=== PATIENT | male | born 1930 | race Caucasian/White ===

== ENCOUNTER → 2017-09-11 | Outpatient (REF) ==
[2017-09-09 18:29] LABS: PSA-TOTAL 6.47 ng/mL (0-4)
[2017-09-09 18:39] LABS: THYROID STIMULATING HORMONE 4.44 uIU/mL (0.465-4.680)
== END ==
LOC: ZLAB.WCH 13:46
PROVIDERS: Internal Medicine
DX: Z01.89 Encounter for other specified special examinations (principal)
CPT/HCPCS: G0103

== ENCOUNTER 2021-06-18 12:34 | Inpatient (IN) | payer MEDICARE ==
[~2021-06-18] VITALS: Ht 177.8 cm; Wt 76.2 kg
[2021-06-18 15:21] VITALS: BP 139/63; PULSE 75
[2021-06-18] MEDS ORDERED: ZEBETA 5MG5 MG PO ×2 (16:21→16:22)
[2021-06-18] MEDS ORDERED: CRESTOR5 MG PO (16:22)
[2021-06-18] MEDS ORDERED: ASPIRIN E.C. 8181 MG PO (16:22)
[2021-06-18] MEDS ORDERED: NORVASC 10MG10 MG PO (16:23)
[2021-06-18] MEDS ORDERED: COZAAR 25MG25 MG/TAB PO (16:23)
[2021-06-18 17:16] LABS: HEMATOCRIT 39.8 % (42.0-52.0); HEMOGLOBIN 13.4 g/dl (13.5-18.0); MEAN CELL VOLUME 90 fl (80.0-100.0); MEAN CORPUSCULAR HEMOGLOBIN 30 pg (27-31); MEAN CORPUSCULAR HGB CONC 34 g/dl (33.0-37.0); MEAN PLATELET VOLUME 10.5 fl (7.4-10.4); PLATELET COUNT 248 K/mm3 (130-400); RED BLOOD COUNT 4.44 M/mm3 (4.20-5.60)
[2021-06-18 17:30] LABS: ALBUMIN 2.8 gm/dL (3.4-4.8); BILIRUBIN,TOTAL 0.5 mg/dL (0.2-1.2); C-REACTIVE PROTEIN 19.14 mg/dL (0.00-0.50); CALCIUM 9.2 mg/dL (8.4-10.2); CREATININE, serum 2.07 mg/dL (0.72-1.25); POTASSIUM 4.2 mmol/L (3.5-4.5); TOTAL PROTEIN 7.1 gm/dL (6.2-8.1)
[2021-06-18 17:48] LABS: LYMPHOCYTE 9 % (20.0-51.0); NEUTROPHILS 87 % (42.0-75.2); PLATELET ESTIMATE NORMAL (NORMAL)
--- NOTE | 2021-06-18 18:03 | NUR ---
Patient has done well since arriving to the floor. Patient arrived on 15L via non-rebreather and was placed on Airvo (40L @ 55%) and is tolerating it well. Patient is a high fall risk, bed alarm is on and call light is w/in reach.
[2021-06-18 20:32] VITALS: BP 148/55; PULSE 70; TEMP 99.1
--- NOTE | 2021-06-18 23:30 | NUR ---
PT IS PLEASANT AND COOPERATIVE. PT DENIES ANY PAIN, STATES HE IS FEELING ALRIGHT. DENIES N/V/D. PT STATES HE WANTS TO TRY TO GET SOME SLEEP. TOOK MEDICATION PRESCRIBED. NO OTHER NEEDS AT THIS TIME.
[2021-06-19 00:44] VITALS: BP 133/59; PULSE 58; TEMP 98.8
[2021-06-19 04:15] VITALS: BP 158/64; PULSE 65; TEMP 97.9
--- NOTE | 2021-06-19 06:22 | NUR ---
PT HAS INCREASED ON AIRVO SETTINGS OVERNIGHT, CURRENTLY ON 55 L 90% FIO2. PT SLEPT ALL NIGHT, IV FLUIDS RUNNING AT 50 ML/HR. CALL LIGHT IN REACH. ALL NEEDS MET.
[2021-06-19 07:57] LABS: HEMOGLOBIN 12.3 g/dl (13.5-18.0); MEAN CELL VOLUME 90 fl (80.0-100.0); MEAN CORPUSCULAR HEMOGLOBIN 30 pg (27-31); MEAN CORPUSCULAR HGB CONC 34 g/dl (33.0-37.0); MEAN PLATELET VOLUME 10.8 fl (7.4-10.4); PLATELET COUNT 258 K/mm3 (130-400); RED BLOOD COUNT 4.09 M/mm3 (4.20-5.60); REDCELL DISTRIBUTION WIDTH-CV 15.1 % (11.5-14.5)
[2021-06-19 07:58] LABS: HEMATOCRIT 36.6 % (42.0-52.0)
[2021-06-19 07:59] LABS: ALBUMIN 2.4 gm/dL (3.4-4.8); BILIRUBIN,TOTAL 0.4 mg/dL (0.2-1.2); CALCIUM 8.8 mg/dL (8.4-10.2); CREATININE, serum 1.92 mg/dL (0.72-1.25); POTASSIUM 4.4 mmol/L (3.5-4.5); TOTAL PROTEIN 6.3 gm/dL (6.2-8.1)
--- NOTE | 2021-06-19 08:00 | NUR ---
PATIENT IS A&O. PATIENT IS REQUIRING AIRVO AT 55L, 90% TO KEEP SATS AT IN THE LOW 90'S. A&P LUNG MIRANDA ARE DEMINISHED WITH FC IN BASES. NOTED OCCATIONAL NON-PRODUCTIVE COUGH. ALL OTHER VSS. PATIENT IS COVID POSITIVE AND ON DROPPLET CONTACT. DNR STATUS. HEAD TO TOE ASSESSMENT COMPLETE. AM MEDS GIVEN. PATIENT DENIES N/V BUT REPORTS DECREASED APPETITE. IV FLUIDS INFUSING VIA PUMP INTO LEFT AC IV. NO OTHER NEEDS AT THIS TIME. CALL LIGHT IN REACH.
[2021-06-19 08:28] VITALS: BP 144/56; PULSE 67; TEMP 98.3
[2021-06-19 08:33] LABS: TROPONIN-I 0.048 ng/mL (0.00-0.033)
[2021-06-19 09:19] LABS: BAND 8 % (0-10); LYMPHOCYTE 11 % (20.0-51.0); NEUTROPHILS 79 % (42.0-75.2); PLATELET ESTIMATE NORMAL (NORMAL)
[2021-06-19 11:19] VITALS: BP 124/40; PULSE 54; TEMP 98.7
--- NOTE | 2021-06-19 13:56 | NUR ---
The patient is COVID positive. SW contacted the patient's , Wayne (ph#[phone]), to discuss discharge plan. The patient and Wayne's daughter, Nya, answered the phone. Wayne was also on the call. [place] the [place] outside of [place] with his . Nya reports that the patient is independent with ADLs and has a cane and walker. The patient's PCP is Dr. Tanner Salinas and he receives his medications from [email or web address]. Nya reports that the patient does not have a DPOA-HC. The patient's next of kin is his . He then has three children: Nya (ph#[phone]), Tian (ph#[phone]), and Barber. Nya reports that the plan would be for the patient to return back home with his upon discharge. The patient is currently on 55 liters of oxygen. SW to continue to follow. *Discharge plan: home with *
--- NOTE | 2021-06-19 17:30 | NUR ---
REPORTED OFF TO ABRAN PRADHAN
[2021-06-19 17:41] VITALS: BP 123/55; PULSE 58; TEMP 98.8
--- NOTE | 2021-06-19 18:17 | NUR ---
Report received from Concepción. Patient resting in bed with eyes closed. No apparent distress noted. Call light in reach.
[2021-06-19 20:35] VITALS: BP 117/46; PULSE 54; TEMP 97.9
--- NOTE | 2021-06-19 23:40 | NUR ---
THIS RN CAME INTO ROOM DUE TO IV PUMPS BEEPING. THIS RN FOUND REMDESIVIR AND IV FLUIDS NOT INFUSING DUE TO DISTAL OCCULSION. THIS RN ATTEMPTED TO FIX IV SITE, ATTEMPTED FLUSH. IV SITE NOT ABLE TO FLUSH, THIS RN STOPPED IV FLUIDS AND GOT NEW IV SITE IN RIGHT AC. FLUIDS RUNNING TO RIGHT AC. PT HAD MOVED TO TO BIPAP AT SHIFT CHANGE, PT AT IPAP 14 AND EPAP AT 10. O2 AT 100%. PT SATTING AT 96% ON THESE SETTINGS. MEDICATIONS GIVEN, NO COMPLAINTS OF PAIN. DAUGHTER CALLED FOR UPDATE, TOLD DAUGHTER MOVED TO BIPAP, AND DUE TO PATIENT CODE STATUS THAT IS THE HIGHEST WE CAN GO FOR HIS OXYGEN. PT DAUGHTER STATED SHE THOUGHT HE WAS OK WITH INTUBATION, THIS RN INFORMED OF DOCUMENTS STATING THAT HE IS NOT. THIS RN TOLD DAUGHTER WILL CALL HOSPITILIST, CARLA TRAYLOR, TO CLARIFY AND MAKE SURE OF DECISION AND RIGHT DOCUMENTATION. THIS RN GAVE PA DAUGHTER PHONE NUMBER AND LET CONVERSATION BE BETWEEN DOCTOR AND DAUGHTER. NO OTHER NEEDS AT THIS TIME.
[2021-06-20] VITALS (8 sets, daily range): BP systolic 116–134; BP diastolic 46–82; PULSE 43–95; TEMP 7.9
--- NOTE | 2021-06-20 06:30 | NUR ---
PT HAD AN UNEVENTFUL NIGHT. PT REMAINED ON BIPAP ALL NIGHT WITH NO PROBLEMS. PT SATTING IN HIGH 90'S ON BIPAP. PT SLEPT MOST OF NIGHT, DENIES PAIN. IV FLUID AT 50 ML/HR INFUSING. CALL LIGHT IN REACH, ALL NEEDS MET.
--- NOTE | 2021-06-20 07:00 | NUR ---
Report received from ABRAN Castillo. PT in bed resting, will continue to monitor
[2021-06-20 08:05] LABS: HEMATOCRIT 37.3 % (42.0-52.0); HEMOGLOBIN 12.1 g/dl (13.5-18.0); MEAN CELL VOLUME 90 fl (80.0-100.0); MEAN CORPUSCULAR HEMOGLOBIN 29 pg (27-31); MEAN CORPUSCULAR HGB CONC 32 g/dl (33.0-37.0); MEAN PLATELET VOLUME 10.9 fl (7.4-10.4); PLATELET COUNT 298 K/mm3 (130-400); RED BLOOD COUNT 4.13 M/mm3 (4.20-5.60); REDCELL DISTRIBUTION WIDTH-CV 15.1 % (11.5-14.5)
[2021-06-20 08:21] LABS: C-REACTIVE PROTEIN 11.69 mg/dL (0.00-0.50); CALCIUM 8.7 mg/dL (8.4-10.2); CREATININE, serum 2.04 mg/dL (0.72-1.25); POTASSIUM 4.4 mmol/L (3.5-4.5)
--- NOTE | 2021-06-20 08:30 | NUR ---
Assessment charted. Pt satting 95% on Bipap and wanted to drink some water and take am meds, switched over to AIRVO at 60L/90% and pt able to tolerate this for short time with sats remaining above 90% but needed to go back on bipap at 100% fiO2 within 10 minutes. Pt resting in bed, update provided to daughter over phone. IVF to RAC. Denies pain, alert and oriented, will continue to monitor.
[2021-06-20 09:29] LABS: BAND 3 % (0-10); LYMPHOCYTE 16 % (20.0-51.0); METAMYELOCYTE 1 % (0-0); NEUTROPHILS 77 % (42.0-75.2)
[2021-06-20 09:30] LABS: BURR CELLS 1+; PLATELET ESTIMATE NORMAL (NORMAL)
--- NOTE | 2021-06-20 11:03 | NUR ---
The patient's oxygen needs increased to 60 liters and he was placed on a bipap. SW to continue to monitor.
--- NOTE | 2021-06-20 17:57 | NUR ---
Pt unable to tolerate being off bipab for much time today, even with AIRVO maxed out today. Resting quietly in bed, did eat a lot of his lunch and just wanted an ensure for supper. Updated daughter over shift, will continue to monitor.
--- NOTE | 2021-06-20 23:53 | NUR ---
PT IS SLEEPING WITH BIPAP ON AT 85%. TOLERATING WELL. PT DENIES PAIN, DISCOMFORT OR ANY INCREASE SOB. PT TOOK ALL MEDICATIONS PRESCRIBED. ASSESSMENT COMPLETED. ALL NEEDS MET
[2021-06-21] VITALS (8 sets, daily range): BP systolic 12–145; BP diastolic 45–56; PULSE 46–77; TEMP 97.5–977
--- NOTE | 2021-06-21 05:52 | NUR ---
PT HAD AN UNEVENTFUL NIGHT. PT SLEPT MOST OF NIGHT, PT ON BIPAP. /10 ON 85% ON BIPAP. PT TOLERATING WELL. PT STATED MOUTH WAS DRY WHEN THIS RN CAME TO DRAW BLOOD FOR MORNING LABS. THIS RN ASSISTED PATIENT MULTIPLE TIMES THROUGHOUT NIGHT WITH DRINKING WATER AND TAKING OFF BIPAP MOMENTARILY FOR A DRINK OF WATER. THIS RN TOLD PATIENT TO USE CALL LIGHT IF THIRSTY IN ORDER TO HELP HIM WITH BIPAP AND DRINKING WATER. PT STATED ALSO HAD SOME DISCOMFORT WITH BIPAP DUE TO "ODDLY SHAPED NOSE". CALL LIGHT IN REACH, ORIENTATED PATIENT TO CALL LIGHT LOCATION, ALL NEEDS MET.
[2021-06-21 06:03] LABS: ALBUMIN 2.4 gm/dL (3.4-4.8); BILIRUBIN,TOTAL 0.3 mg/dL (0.2-1.2); C-REACTIVE PROTEIN 7.16 mg/dL (0.00-0.50); CALCIUM 8.8 mg/dL (8.4-10.2); CREATININE, serum 2.05 mg/dL (0.72-1.25); POTASSIUM 4.4 mmol/L (3.5-4.5); TOTAL PROTEIN 6.1 gm/dL (6.2-8.1)
[2021-06-21 08:34] LABS: BASO % 0.1 % (0.0-2.0); GRAN # 8.7 K/mm3 (1.4-6.5); GRAN % 84.1 % (42.2-75.2); HEMOGLOBIN 11.8 g/dl (13.5-18.0); LYMPH % 9.5 % (20.0-51.0); MEAN CELL VOLUME 90 fl (80.0-100.0); MEAN CORPUSCULAR HEMOGLOBIN 30 pg (27-31); MEAN CORPUSCULAR HGB CONC 33 g/dl (33.0-37.0); MEAN PLATELET VOLUME 11.2 fl (7.4-10.4); MONO # 0.5 K/mm3 (0.1-0.6); MONO % 5.1 % (1.7-9.3); PLATELET COUNT 316 K/mm3 (130-400); RED BLOOD COUNT 3.97 M/mm3 (4.20-5.60); REDCELL DISTRIBUTION WIDTH-CV 14.9 % (11.5-14.5)
[2021-06-21 08:36] LABS: HEMATOCRIT 35.6 % (42.0-52.0)
--- NOTE | 2021-06-21 23:35 | NUR ---
PT PLACED ON BIPAP AT 1955 PT WAS SATURATING 83 PERCENT ON AIRVO 60L FI02 94 PERCENT. BIPAP SETTINGS 16/10 FIO2 100 02 SATURATION 95 PERCENT. THIS NURSE WILL CONTINUE TO MONITOR.
[2021-06-22 03:32] VITALS: BP 127/50; PULSE 61; TEMP 97.8
[2021-06-22 07:37] VITALS: BP 146/56; TEMP 97.8
[2021-06-22 07:56] LABS: HEMATOCRIT 37.1 % (42.0-52.0); HEMOGLOBIN 12.2 g/dl (13.5-18.0); MEAN CELL VOLUME 89 fl (80.0-100.0); MEAN CORPUSCULAR HEMOGLOBIN 29 pg (27-31); MEAN CORPUSCULAR HGB CONC 33 g/dl (33.0-37.0); MEAN PLATELET VOLUME 11.2 fl (7.4-10.4); PLATELET COUNT 302 K/mm3 (130-400); RED BLOOD COUNT 4.16 M/mm3 (4.20-5.60); REDCELL DISTRIBUTION WIDTH-CV 14.6 % (11.5-14.5)
[2021-06-22 08:16] LABS: C-REACTIVE PROTEIN 4.8 mg/dL (0.00-0.50); CREATININE, serum 2.25 mg/dL (0.72-1.25)
[2021-06-22 09:16] LABS: BAND 4 % (0-10); LYMPHOCYTE 4 % (20.0-51.0); NEUTROPHILS 88 % (42.0-75.2); PLATELET ESTIMATE NORMAL (NORMAL)
--- NOTE | 2021-06-22 10:05 | NUR ---
The patient remains bipap dependent. SW to continue to monitor.
[2021-06-22 11:42] VITALS: BP 141/55; PULSE 52; TEMP 97.8
--- NOTE | 2021-06-22 13:46 | NUR ---
SWIRCHED TO CPAP [address] PRITCH[address]
[2021-06-22 15:34] VITALS: BP 132/59; PULSE 54; TEMP 97.6
--- NOTE | 2021-06-22 19:10 | NUR ---
PT NOTED TO HAVE SUBCUTANEOUS EMPHYSEMA,DR PRITCHARD CALLED AND NOTIFY ORDERS REVEIVED FOR CHEST XRAY AND TO HAVE RT TO PLACE PT ON IARVO CHANGE BIPAP SETTING.SHRAVAN WITH RT CALLED ABD NOTIFY
[2021-06-22 19:39] VITALS: BP 118/45; PULSE 55; TEMP 98
--- NOTE | 2021-06-22 21:51 | NUR ---
SPOKE TO ABI OSULLIVAN, ABOUT MOVING PATIENT TO AIRVO AFTER NOTICEABLE CHANGES TO PATIENTS SUBCU EMPHYSEMA. PATIENT IS CURRENTLY STILL COMFORTABLE ON AIRVO AT 60L, 94% WITH SP02 AT 92%. I SPOKE TO THE PCT AND RN AND WE WILL WORK TOGETHER TO CLOSELY MONITOR SATURATIONS. AFTER SPEAKING WITH OUR NOC HOSP CARLA TRAYLOR, WE STILL ARE AT A DNR STATUS. IF PATIENT DESATURATES, THEN WE WILL PLACE PATIENT ON BIPAP AND PATIENT IS AWARE OF THAT.
[2021-06-22 23:15] VITALS: BP 140/59; PULSE 57; TEMP 97.9
[2021-06-23 04:00] VITALS: BP 128/52; PULSE 52; TEMP 97.6
--- NOTE | 2021-06-23 04:13 | NUR ---
PT SATURATING 89-90 PERCENT ON AIRVO 60L 93 PERCENT. PT VERBALIZES UNDERSTANDING ON PURPOSE OF BIPAP WEAN AND HOLD.
--- NOTE | 2021-06-23 05:07 | NUR ---
PT SLEPT MAJORITY OF THIS SHIFT. PT CONTINUES WITH AIRVO AT 60L 93 FIO2 WITH O2 SATURATIONS RANGING FROM 88-92. PT CONTINUES TO APPEAR FRAIL, PALE AND CYANOTIC. BREATHING IS NOT LABOROUS BEGINNING OF SHIFT, PT WISHES COMFORT OVER INVASIVE INTERVENTIONS. COMFORT MEASURES PROVIDED THIS SHIFT. PT EXPRESSES NO ADDITONAL NEEDS. CALL LIGHT WITHIN REACH. PULSE OXIMETRY CONTINOUSLY MONITORING.
[2021-06-23 05:37] LABS: BASO % 0.2 % (0.0-2.0); GRAN % 87.3 % (42.2-75.2); LYMPH # 0.9 K/mm3 (1.2-3.4); LYMPH % 7.4 % (20.0-51.0); MEAN CELL VOLUME 91 fl (80.0-100.0); MEAN CORPUSCULAR HEMOGLOBIN 30 pg (27-31); MEAN CORPUSCULAR HGB CONC 33 g/dl (33.0-37.0); MEAN PLATELET VOLUME 10.8 fl (7.4-10.4); MONO # 0.5 K/mm3 (0.1-0.6); MONO % 3.8 % (1.7-9.3); PLATELET COUNT 282 K/mm3 (130-400); RED BLOOD COUNT 4.04 M/mm3 (4.20-5.60); REDCELL DISTRIBUTION WIDTH-CV 14.7 % (11.5-14.5)
[2021-06-23 05:49] LABS: HEMATOCRIT 36.7 % (42.0-52.0)
[2021-06-23 06:07] LABS: C-REACTIVE PROTEIN 3.27 mg/dL (0.00-0.50); CALCIUM 8.6 mg/dL (8.4-10.2); CREATININE, serum 2.08 mg/dL (0.72-1.25); POTASSIUM 4.8 mmol/L (3.5-4.5)
[2021-06-23 07:55] VITALS: BP 126/51; PULSE 58; TEMP 98.5
[2021-06-23 11:41] VITALS: BP 112/48; PULSE 60; TEMP 97.8
[2021-06-23 15:26] VITALS: BP 122/49; PULSE 56; TEMP 98.7
--- NOTE | 2021-06-23 19:00 | NUR ---
PT TOLARATING AIRVO ALL DAY PT WITH NO DISTRESS.
[2021-06-23 19:53] VITALS: BP 118/75; PULSE 67; TEMP 98.1
[2021-06-23 23:26] VITALS: BP 120/71; PULSE 84; TEMP 97.9
--- NOTE | 2021-06-24 01:32 | NUR ---
Patient is sitting in bed, alert and oriented x 4, continues in airvo 60L 90%fio2. His oxygen drops to 70% sat while moving. Assessment completed, hygiene provided, linens changed, no further needs at this time. Call light within reach.
[2021-06-24 03:44] VITALS: BP 120/71; PULSE 77; TEMP 98.4
--- NOTE | 2021-06-24 06:54 | NUR ---
Pt had a calm night. His O2 drops with exertion to 70's but recovers at rest. He has been with AIRVO AT 60L 92%. Shift report given to day RN.
[2021-06-24 08:07] LABS: HEMOGLOBIN 11.7 g/dl (13.5-18.0); MEAN CELL VOLUME 90 fl (80.0-100.0); MEAN CORPUSCULAR HEMOGLOBIN 29 pg (27-31); MEAN CORPUSCULAR HGB CONC 33 g/dl (33.0-37.0); MEAN PLATELET VOLUME 11.5 fl (7.4-10.4); PLATELET COUNT 298 K/mm3 (130-400); RED BLOOD COUNT 3.98 M/mm3 (4.20-5.60); REDCELL DISTRIBUTION WIDTH-CV 14.6 % (11.5-14.5)
[2021-06-24 08:29] LABS: HEMATOCRIT 35.9 % (42.0-52.0)
[2021-06-24 08:30] VITALS: BP 136/54; PULSE 72; TEMP 98.5
[2021-06-24 08:36] LABS: CALCIUM 8.7 mg/dL (8.4-10.2); CREATININE, serum 2.26 mg/dL (0.72-1.25); POTASSIUM 4.8 mmol/L (3.5-4.5)
--- NOTE | 2021-06-24 10:00 | NUR ---
Pt doing well this am. Pt has no complaints of pain. Pt reported that he did get up twice last night to use commode and did have bowel movement both times. Pt using urinal for voiding. Pt has had and tolerated breakfast with no complaints. Pt continues to have airvo on. Call light within reach, will continue to monitor
[2021-06-24 10:58] LABS: HYPOCHROMIA 1+; LYMPHOCYTE 2 % (20.0-51.0); NEUTROPHILS 92 % (42.0-75.2); PLATELET ESTIMATE NORMAL (NORMAL)
[2021-06-24 11:00] VITALS: BP 117/64; PULSE 67; TEMP 99
[2021-06-24 15:50] VITALS: BP 117/48; PULSE 56; TEMP 98.5
[2021-06-24 20:25] VITALS: BP 126/50; PULSE 61; TEMP 98.3
--- NOTE | 2021-06-24 22:00 | NUR ---
Patient is resting in bed, alert and oriented x 4, looks tired. denies pain, nasuea or vomiting. Indicates he feels the same. Continues dropping his O2 sat while standing or moving to comode. Continues with airvo 60L 92%FiO2. Assessment completed, medications provided. No further needs at this time, call light within reach.
[2021-06-24 23:32] VITALS: BP 114/50; PULSE 64; TEMP 98.4
[2021-06-25 04:02] VITALS: BP 132/55; PULSE 60; TEMP 98.3
--- NOTE | 2021-06-25 07:13 | NUR ---
Pt has been under the same conditions, no changes. He had a calm night. Report given to day RN.
[2021-06-25 08:00] VITALS: BP 134/80; PULSE 60; TEMP 98.7
--- NOTE | 2021-06-25 10:30 | NUR ---
PT RESTING IN BED. MORNING MEDICATIONS GIVEN. SHIFT ASSESSMENT COMPLETED. PT CURRENTLY ON AIRVO 60L/95%. PICC LINE FLUSHES AND HAS GOOD BLOOD RETURN. DENIES ANY PAIN OR NEEDS. CONTINUING TO MONITOR.
--- NOTE | 2021-06-25 10:38 | NUR ---
The patient remains on 60 liters oxygen. The hospitalist notified SW that he would like a referral to [facility]. BEVERLY contacted and faxed a referral to [facility]. Awaiting screen.
[2021-06-25 12:00] VITALS: BP 130/51; PULSE 58; TEMP 98
--- NOTE | 2021-06-25 12:03 | NUR ---
Follow up visit from the frame expander. Chaplain millanyed with patient. No other needs right now.
--- NOTE | 2021-06-25 14:42 | NUR ---
Sly, at [facility], reports that the patient is too unstable at this time and cannot present his case to [facility] yet or else they will deny. Sly plans to follow along with the patient.
[2021-06-25 16:00] VITALS: BP 116/61; PULSE 73; TEMP 98
--- NOTE | 2021-06-25 17:15 | NUR ---
MOVED PT TO RM 303WITH NRB. PT 64% WHEN PLACED BACK ON AIRVO. PLACED PT ON CPAP 12 AT 100% FOR [address]%. PL[address] BACK ON AIRVO SPO2 91% RN NOTIFIED
[2021-06-25 20:00] VITALS: BP 114/54; PULSE 66; TEMP 97.7
--- NOTE | 2021-06-25 21:53 | NUR ---
PT IS LAYING UPRIGHT IN BED, AIRVO 60 L, 95%. PT STATES "FEELS GOOD CAN BE AT THIS TIME" DENIES PAIN, ASSESSMENT COMPLETED. MEDICATIN GIVEN. NO OTHER NEEDS AT THIS TIME.
[2021-06-26] VITALS (7 sets, daily range): BP systolic 116–159; BP diastolic 48–75; PULSE 63–80; TEMP 97.4–98.1
--- NOTE | 2021-06-26 06:13 | NUR ---
Pt had an ok night. Pt slept through night on CPAP settings, pt denies pain, took all medications as ordered. Pt had times where O2 sats dropped, this RN readjusted CPAP mask and improved saturation settings. Pt seems to be developing sore on bridge of nose from Bipap/CPAP mask. Will pass information to day shift/RT to come with solutions. Call light in reach, all needs met.
[2021-06-26 07:02] LABS: HEMOGLOBIN 12.4 g/dl (13.5-18.0); MEAN CELL VOLUME 91 fl (80.0-100.0); MEAN CORPUSCULAR HEMOGLOBIN 30 pg (27-31); MEAN CORPUSCULAR HGB CONC 33 g/dl (33.0-37.0); MEAN PLATELET VOLUME 11.7 fl (7.4-10.4); PLATELET COUNT 273 K/mm3 (130-400); RED BLOOD COUNT 4.18 M/mm3 (4.20-5.60); REDCELL DISTRIBUTION WIDTH-CV 14.4 % (11.5-14.5)
[2021-06-26 07:32] LABS: CALCIUM 8.7 mg/dL (8.4-10.2); CREATININE, serum 1.99 mg/dL (0.72-1.25); POTASSIUM 4.8 mmol/L (3.5-4.5)
[2021-06-26 08:14] LABS: BAND 5 % (0-10); LYMPHOCYTE 6 % (20.0-51.0); METAMYELOCYTE 3 % (0-0); NEUTROPHILS 84 % (42.0-75.2); PLATELET ESTIMATE NORMAL (NORMAL)
--- NOTE | 2021-06-26 09:31 | NUR ---
MORNING MEDICATIONS GIVEN. SHIFT ASSESSMENT COMPLETED. PT TAKEN OFF OF CPAP AND PLACED ON AIRVO 60L/95%. DENIES ANY PAIN AT THIS TIME. PICC LINE FLUSHES AND HAS GOOD BLOOD RETURN. WILL CONTINUE TO MONITOR.
--- NOTE | 2021-06-26 15:06 | NUR ---
The patient has had little overall change. SW faxed updates to Sly at [facility].
--- NOTE | 2021-06-26 22:14 | NUR ---
PT IS ON AIRVO 60 L 95%. PT STATES READINESS TO LEAVE AND FEELING GOOD HE CAN BE. ASSESSMENT COMPLETED, PT DENIES PAIN. PT TOOK ALL MEDICATIONS PRESCRIBED.
[2021-06-27 00:05] VITALS: BP 125/51; PULSE 59; TEMP 98.2
[2021-06-27 04:45] VITALS: BP 155/63; PULSE 64; TEMP 98.1
--- NOTE | 2021-06-27 05:57 | NUR ---
Pt had an uneventful night. Pt remained on Airvo 60L 95% until placed on CPAP at 12 cm. Pt denies pain, took all medications, drank water and urinated into urinal. Call light in reach, will continue to monitor.
[2021-06-27 07:56] VITALS: BP 128/47; PULSE 65; TEMP 98
[2021-06-27 12:00] VITALS: BP 125/56; PULSE 70; TEMP 98
--- NOTE | 2021-06-27 14:28 | NUR ---
BEVERLY faxed updates to Sly at [facility].
[2021-06-27 16:00] VITALS: BP 128/53; PULSE 63; TEMP 97.5
[2021-06-27 21:31] VITALS: BP 125/54; PULSE 65; TEMP 97.7
[2021-06-28 01:18] VITALS: BP 138/59; PULSE 66; TEMP 97.9
[2021-06-28 05:44] VITALS: BP 135/66; PULSE 73; TEMP 98.3
--- NOTE | 2021-06-28 06:14 | NUR ---
AT ABOUT 0550 PT ASSISTED TO BED SIDE COMMODE AND DURING BM PT RELEASED A SUBSTANTIAL AMOUNT OF BLOOD ALONG WITH BM, VSS, TACHYPNEIC. HOSPITALIST INFORMED, LOVENOX/ASPIRIN ON HOLD. NURSE WILL CONTINUE TO MONITOR.
--- NOTE | 2021-06-28 06:43 | NUR ---
PT REMAINS ON 60L 91 PERCENT FI02 WITH SATURATIONS RANGING FROM 90-92 AND BIPAP WITH 02 SATURATIONS AT 94 PERCENT. CALL LIGHT WITHIN REACH.
[2021-06-28 07:40] VITALS: BP 115/52; PULSE 84; TEMP 97.5
--- NOTE | 2021-06-28 09:59 | NUR ---
MORNING MEDICATIONS GIVEN. SHIFT ASSESSMENT COMPLETED. PICC LINE FLUSHES AND HAS BLOOD RETURN. CURRENTLY ON AIRVO 60L/95%, O2 SATURATIONS AROUND 88-90%. PT HAS HAD MULTIPLE SATURATED LINENS DUE TO RECTAL BLEEDING, AND COPIOUS AMOUNTS OF BLOOD IN STOOLS. PROVIDER NOTIFIED, INSTRUCTED TO CONSULT GI AND CONTINUE TO MONITOR. PT DENIES A HISTORY OF RECTAL BLEEDING/ISSUES. DENIES ANY ABDOMINAL OR RECTAL PAIN. BLOOD IN BRIGHT RED IN COLOR.
[2021-06-28 10:04] LABS: BASO % 0.1 % (0.0-2.0); GRAN # 14.2 K/mm3 (1.4-6.5); GRAN % 85.4 % (42.2-75.2); HEMOGLOBIN 11.8 g/dl (13.5-18.0); LYMPH # 1.4 K/mm3 (1.2-3.4); LYMPH % 8.1 % (20.0-51.0); MEAN CELL VOLUME 92 fl (80.0-100.0); MEAN CORPUSCULAR HEMOGLOBIN 30 pg (27-31); MEAN CORPUSCULAR HGB CONC 32 g/dl (33.0-37.0); MEAN PLATELET VOLUME 12.1 fl (7.4-10.4); MONO # 0.9 K/mm3 (0.1-0.6); MONO % 5.1 % (1.7-9.3); PLATELET COUNT 257 K/mm3 (130-400); RED BLOOD COUNT 3.95 M/mm3 (4.20-5.60); REDCELL DISTRIBUTION WIDTH-CV 14.6 % (11.5-14.5)
[2021-06-28 10:05] LABS: HEMATOCRIT 36.5 % (42.0-52.0)
[2021-06-28 10:23] LABS: ALBUMIN 2.4 gm/dL (3.4-4.8); BILIRUBIN,TOTAL 0.7 mg/dL (0.2-1.2); CALCIUM 8.5 mg/dL (8.4-10.2); CREATININE, serum 2.26 mg/dL (0.72-1.25); MAGNESIUM 2.5 mg/dL (1.6-2.6); POTASSIUM 5.3 mmol/L (3.5-4.5); TOTAL PROTEIN 5.4 gm/dL (6.2-8.1)
--- NOTE | 2021-06-28 10:42 | NUR ---
BLOOD BANK UNABLE TO SUPPLY A UNIT OF BLOOD FOR PT DUE TO CRITICAL SUPPLY. THEY REPORT THEY ARE UNABLE TO TRANSFUSE UNTIL HGB IS AT 6.5 OR LESS. WILL TYPE AND SCREEN AND CONTINUE TO TREND LAB VALUES.
[2021-06-28 11:55] VITALS: BP 123/98; PULSE 76; TEMP 97.4
[2021-06-28 16:20] VITALS: BP 103/53; PULSE 91; TEMP 97.5
[2021-06-28 18:31] LABS: HEMOGLOBIN 10.1 g/dl (13.5-18.0)
[2021-06-28 18:32] LABS: HEMATOCRIT 30.3 % (42.0-52.0)
[2021-06-28 20:17] LABS: HEMOGLOBIN 10.2 g/dl (13.5-18.0)
[2021-06-28 20:20] LABS: HEMATOCRIT 30.4 % (42.0-52.0)
[2021-06-28 20:24] VITALS: BP 96/51; PULSE 84; TEMP 97.8
--- NOTE | 2021-06-28 23:34 | NUR ---
PT IS LAYING IN BED, SITTING AT ALMOST [address], 60 L 95%. PT IS TIRED, GIVING SHORT ANSWERS. PT NEEDED ADJUSTED, PT BECAME DYSPNEIC UPON REPOSITIONING, OXYGEN SATURATIONS DOWN TO 84%. RT CALLED, STATED GIVE HIM TIME TO RECOVER, HE TAKES LONGER TO RECOVER. MEDICATIONS GIVEN, H&H BLOODWORK DRAWN, PT DENIES PAIN. PT MADE COMFORTABLE, CALL LIGHT IN REACH. NS RUNNING AT 75 ML/HR. WILL CONTINUE TO MONITOR.
[2021-06-29] VITALS (7 sets, daily range): BP systolic 103–127; BP diastolic 49–60; PULSE 79–87; TEMP 97.3–97.8
--- NOTE | 2021-06-29 05:48 | NUR ---
PT HAD AN UNEVENTFUL NIGHT. PT SLEPT MOST OF NIGHT, PT DENIES PAIN, CALL LIGHT IN REACH. NO SIGNS OF FURTHER BLEEDING. LAST H&H WAS STABLE AT 10.2. NS FLUIDS RUNNING AT 75 ML/HR.
[2021-06-29 06:23] LABS: CALCIUM 8.1 mg/dL (8.4-10.2); CREATININE, serum 2.66 mg/dL (0.72-1.25); POTASSIUM 5.5 mmol/L (3.5-4.5)
[2021-06-29 07:13] LABS: BASO % 0.2 % (0.0-2.0); GRAN # 17.2 K/mm3 (1.4-6.5); GRAN % 88.8 % (42.2-75.2); HEMOGLOBIN 10.1 g/dl (13.5-18.0); LYMPH # 0.9 K/mm3 (1.2-3.4); LYMPH % 4.7 % (20.0-51.0); MEAN CELL VOLUME 89 fl (80.0-100.0); MEAN CORPUSCULAR HEMOGLOBIN 30 pg (27-31); MEAN CORPUSCULAR HGB CONC 34 g/dl (33.0-37.0); MEAN PLATELET VOLUME 12.1 fl (7.4-10.4); MONO % 5.3 % (1.7-9.3); PLATELET COUNT 199 K/mm3 (130-400); RED BLOOD COUNT 3.37 M/mm3 (4.20-5.60); REDCELL DISTRIBUTION WIDTH-CV 14.8 % (11.5-14.5)
[2021-06-29 07:15] LABS: HEMATOCRIT 29.9 % (42.0-52.0)
--- NOTE | 2021-06-29 09:56 | NUR ---
PT RESTING IN BED. MORNING MEDICATIONS GIVEN. SHIFT ASSESSMENT COMPLETED. PT VERY WEAK BUT DENIES ANY PAIN. WILL ATTEMPT TO BLADDER SCAN FOR POSSIBLE MUNSON PLACEMENT. PICC LINE FLUSHES AND HAS BLOOD RETURN. CONTINUING TO MONITOR.
--- NOTE | 2021-06-29 14:32 | NUR ---
The patient remains high flow oxygen during the day at 60 liters and is on the bipap at night. BEVERLY faxed updates to Sly at [facility].
[2021-06-29 15:32] LABS: COLLECTION METHOD CATHETER
[2021-06-29 15:38] LABS: MUCOUS Present (NOT PRESENT); PH 5 (5-8); SQUAMOUS EPITHELIAL 0-2 /hpf (0-10); URINE APPEARANCE Hazy (CLEAR/HAZY); URINE BACTERIA None Seen /hpf (NONE SEEN); URINE BILIRUBIN Negative (NEGATIVE); URINE BLOOD 2+ (NEGATIVE); URINE COLOR Yellow (YELLOW); URINE GLUCOSE Negative (NEGATIVE); URINE KETONE Negative (NEGATIVE); URINE LEUKOCYTE ESTERASE Negative (NEGATIVE); URINE NITRATE Negative (NEGATIVE); URINE PROTEIN(semi-quant) Negative (NEGATIVE); URINE RBC >50 /hpf (0-2); URINE UROBILINOGEN Negative (NEGATIVE)
[2021-06-29 17:02] LABS: ALBUMIN 2.4 gm/dL (3.4-4.8); PHOSPHOROUS 5.9 mg/dL (2.3-4.7)
[2021-06-29 18:19] LABS: HEMATOCRIT 28.6 % (42.0-52.0); HEMOGLOBIN 9.4 g/dl (13.5-18.0)
--- NOTE | 2021-06-29 21:31 | NUR ---
Patient sitting up in bed with eyes closed upon enter the room. Patient awakens easily with verbal stimulation. Patient A/Ox3. Patient appears very weak and tired. Soft spoken voice noted. Patient currently on Airvo 60L/95%. Breathing labored. Patient denies any pain or discomfort. All scheduled meds given per AUG. Call light in reach. Will continue to monitor.
[2021-06-30 03:59] VITALS: BP 125/62; PULSE 84; TEMP 97.6
[2021-06-30 07:39] LABS: MEAN CELL VOLUME 90 fl (80.0-100.0); MEAN CORPUSCULAR HGB CONC 33 g/dl (33.0-37.0); MEAN PLATELET VOLUME 12.3 fl (7.4-10.4); PLATELET COUNT 152 K/mm3 (130-400); RED BLOOD COUNT 3.19 M/mm3 (4.20-5.60); REDCELL DISTRIBUTION WIDTH-CV 14.8 % (11.5-14.5)
[2021-06-30 07:41] LABS: HEMATOCRIT 28.8 % (42.0-52.0); HEMOGLOBIN 9.5 g/dl (13.5-18.0); MEAN CORPUSCULAR HEMOGLOBIN 30 pg (27-31)
[2021-06-30 07:51] LABS: CALCIUM 7.9 mg/dL (8.4-10.2); CREATININE, serum 2.6 mg/dL (0.72-1.25); POTASSIUM 4.8 mmol/L (3.5-4.5)
[2021-06-30 08:15] VITALS: BP 149/64; PULSE 91; TEMP 96.5
--- NOTE | 2021-06-30 09:15 | NUR ---
PT PLEASANT, AOX4, PT NECK AND UPPER CHEST EDEMETOUS, CREPITUS PALPATED AROUND NECK, FINE CRACKLES AUSCULTATED UL BILATERALLY, COARSE CRACKLES IN THE BASES NOTED, DR. WEBBER CALLED AND UPDATED BUT NO NEW ORDERS, PT TRANSFERRED TO AIRVO FROM BIPAP FOR BREAKFAST, PT SATTING FROM 83-90% WHILE EATING BREAKFAST, ASSESSMENT PERFORMED, VITALS REVIEWED, DR. WEBBER NOTED TO KEEP ON AIRVO WHILE DISCUSSING WITH FAMILY FOR POSSIBLE COMFORT CARES. PT NOW TOLERATING 93% WHILE SLEEPING
[2021-06-30 10:06] LABS: BAND 1 % (0-10); HYPOCHROMIA 1+; LYMPHOCYTE 3 % (20.0-51.0); NEUTROPHILS 95 % (42.0-75.2)
[2021-06-30 10:07] LABS: PLATELET ESTIMATE NORMAL (NORMAL)
[2021-06-30 12:58] VITALS: BP 125/68
--- NOTE | 2021-06-30 13:23 | NUR ---
FAMILY MET WITH PT. FAMILY WANTS TO WAIT UNTIL THIS AFTERNOON TO MAKE DECISION ABOUT PT COMFORT STATUS, PT STATED TO FAMILY "JUST GET IT OVER WITH". PULSE OX LOW AT NOON VITALS AFTER INCONTINENT CARES WERE PROVIDED AND PT WAS REPOSITIONED. DR. WEBBER NOTIFIED AND ORDERED CONTINUOUS PULSE OX TO ASSESS PT OXYGENATION STATUS. [facility] RT PLACED CONTINUOUS PULSE OX ON AND PT SATTING 87% WITH THAT AT THIS TIME.
--- NOTE | 2021-06-30 14:10 | NUR ---
DR. WEBBER NOTIFIED OF PT O2 RANGING FROM 81-89%, PT SLEEPING AT THIS TIME
[2021-06-30 16:01] VITALS: BP 117/49; PULSE 84; TEMP 97.6
--- NOTE | 2021-06-30 18:04 | NUR ---
PT PLEASANT, ORIENTEDX4, DROWSY BUT AROUSES TO NAME, PT DENIES PAIN, DENIES SOB, FAMILY UPDATED AND STATED "WE'LL PROBABLY HAVE A FAMILY MEETING TONIGHT TO DECIDE MATTERS, WE'LL PROBABLY LEAVE IT FOR TONIGHT AND DECIDE TOMORROW, LET US KNOW IF THERE IS A DECLINE". CONTINUOUS PULSE OX ON PT, NO OTHER NEEDS.
[2021-06-30 20:17] VITALS: BP 119/42; PULSE 88; TEMP 98
--- NOTE | 2021-06-30 21:00 | NUR ---
Patient resting in bed with eyes closed upon enter the room at 19:50 pm. Patient awakes easily with voice. Patient currently on Airvo 60L/90%. SPO2 84 % at this time. Labored breathing and SOB noted. Patient appears very weak and tired. Dinner tray at bedside, patient refused dinner. Patient states, "I'm not hungry. I'm ready to go." Offered water and patient took sips of water. SPO2 dropped to 80-81% around 20:20 pm. Called KYMBERLY Hoffmann and updated. Verbal order received from KYMBERLY Hoffmann to transition care to comfort care at 20:45 pm. PRN Morphine given for air hunger and comfort at this time. Informed patient of plan of care. Call light in reach. Will continue to monitor.
--- NOTE | 2021-07-01 05:34 | NUR ---
Patient's son came in around 9 pm last night and stayed overnight to provide comfort. PRN Morphine and Ativan given throughout the night for comfort. Patient is having agonal breathing and terminal secretions this morning. Provided emotional support and comfort to the patient and family. Call light in reach. Will continue to monitor.
--- NOTE | 2021-07-01 07:03 | NUR ---
During shift change around 6:50 am, patient's son reported that patient stopped breathing just right now. This RN and ABRAN Rogers went in the room to check on patient immediately, patient still has weak heart beat and pulses. Remained at bedside until patient passes. Patient has no respirations, no heart beat and no pulses at 06:57 am. This RN and ABRAN Rogers verified patient's . Provided comfort to patient's son. Called warehouse examiner and informed of patient's .
--- NOTE | 2021-07-01 07:23 | NUR ---
physician notified of time of 656, confirmed with Emmie OSULLIVAN
--- NOTE | 2021-07-01 10:29 | NUR ---
PT TAKEN BY LONG-TERM, PT SON UPDATED ON TRANSFER, PICC REMOVED EARLIER IN AM, DOCUMENTATION PERFORMED
== END 2021-07-01 10:32 | disposition expired | DRG 177 ==
LOC: MEDICAL 12:34
PROVIDERS: Internal Medicine Pulmonary Disease; Nurse Practitioner Family; Physician Assistant; Student in an Organized Health Care Education/Training Program; ADMIT Internal Medicine
PROC: XW033E5 Introduction of Remdesivir Anti-infective into Peripheral Vein, Percutaneous Approach, New Technology Group 5 (ICD-10-PCS; principal; 2021-06-18)
PROC: 5A0955A Assistance with Respiratory Ventilation, Greater than 96 Consecutive Hours, High Flow/Velocity Cannula (ICD-10-PCS; 2021-06-18)
PROC: 02HV33Z Insertion of Infusion Device into Superior Vena Cava, Percutaneous Approach (ICD-10-PCS; 2021-06-20)
PROC: 5A09457 Assistance with Respiratory Ventilation, 24-96 Consecutive Hours, Continuous Positive Airway Pressure (ICD-10-PCS; 2021-06-20)
DX: U07.1 COVID-19 (principal); J12.82 Pneumonia due to coronavirus disease 2019; J96.01 Acute respiratory failure with hypoxia; N17.9 Acute kidney failure, unspecified; E87.2 Acidosis; K92.2 Gastrointestinal hemorrhage, unspecified; I24.8 Other forms of acute ischemic heart disease; E78.5 Hyperlipidemia, unspecified; I25.10 Atherosclerotic heart disease of native coronary artery without angina pectoris; Z66 Do not resuscitate; I12.9 Hypertensive chronic kidney disease with stage 1 through stage 4 chronic kidney disease, or unspecified chronic kidney disease; N18.9 Chronic kidney disease, unspecified; J98.2 Interstitial emphysema; D64.9 Anemia, unspecified; E87.5 Hyperkalemia; Z95.1 Presence of aortocoronary bypass graft; Z79.82 Long term (current) use of aspirin; Z73.0 Burn-out
CPT/HCPCS: 99223-AI; 99233-AI; C1751; C9113; J0248; J0696; J1650; J2060; J7030; J7050; J8540; Q0249